=== PATIENT | female | born 1960 | race Caucasian/White ===

== ENCOUNTER 2019-06-25 09:54 | Emergency (ER) | payer BC ==
[~2019-06-25] VITALS: Ht 170.2 cm; Wt 86.2 kg
[2019-06-25 10:15] VITALS: BP_SYST 120
--- NOTE | 2019-06-25 11:06 | NUR ---
Pt presented to ED via BLS due to mechanical fall. Pt stated that she tripped over a wire that was protruding from the ground. Pt fell to the ground hitting her nose, chin, right shoulder and right foot. Pt stated that she did not have any loss of consciousness, denies vision change. Nose was bleeding after the fall. Abrasion visually noted.
--- NOTE | 2019-06-25 11:07 | NUR ---
ER Dr. Ro at bedside examining patient.
[2019-06-25] MEDS ORDERED: KETOROLAC TROMETHAMINE 60 MG/2 ML VIAL IM ONE (11:15)
--- NOTE | 2019-06-25 11:33 | NUR ---
Pt off the unit to XR
--- NOTE | 2019-06-25 11:45 | NUR ---
Pt returned from XR to bed #3
--- NOTE | 2019-06-25 12:20 | NUR ---
Pt resting at this time, VSS, respirations even and unlabored
[2019-06-25 13:19] VITALS: BP_SYST 121
--- NOTE | 2019-06-25 13:19 | NUR ---
Patient given written and verbal discharge instructions and verbalizes understanding. ER MD discussed with patient the results and treatment provided. Patient in stable condition. ID arm band removed. Rx of Motrin, Tramadol given. Patient educated on pain management and to follow up with PMD. Pain Scale 2/10. Opportunity for questions provided and answered. Medication side effect fact sheet provided.
== END 2019-06-25 13:19 | disposition home or self-care (01) ==
LOC: SED 09:54
DX: S42.391A Other fracture of shaft of right humerus, initial encounter for closed fracture (principal); W01.0XXA Fall on same level from slipping, tripping and stumbling without subsequent striking against object, initial encounter; Y93.89 Activity, other specified; Y92.89 Other specified places as the place of occurrence of the external cause; Y99.8 Other external cause status
CPT/HCPCS: 70486; 73030; 96372; 99284; J1885